=== PATIENT | female | born 1995 | race American Indian/Alaskan Native ===

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

== ENCOUNTER 2017-02-06 09:16 | Emergency (ER) | payer SELFPAY ==
[2017-02-06 09:27] VITALS: BP 115/77
--- NOTE | 2017-02-06 11:00 | Emergency Department Report ---
ED ENT HPI - General Chief complaint: Sore Throat Stated complaint: STREP THROAT Time Seen by Provider: 02/06/17 10:33 Source: patient Mode of arrival: Ambulatory Limitations: No Limitations - History of Present Illness Initial comments: 21-year-old female past medical history none presents with complaint of sore throat for 4 days. Patient states she sees white exudates in the back of her throat. Denies any nausea or vomiting slightly decreased appetite slight body aches. Patient speaking in full sentences no audible wheezing or stridor state she has been able to swallow liquids but due to pain in her throat has difficulty swallowing solids. Has been taking [id number] Motrin with minimal relief. Denies sick contacts at home MD complaint: sore throat (patient states she has had sore throat for 4 days) Onset/Timin -: days(s) Location: throat Severity: moderate Severity scale (0 -10): 5 Quality: aching Consistency: intermittent Worsens with: swallowing Associated Symptoms: sore throat - Related Data Previous Rx's Medication Instructions Recorded Last Taken Type Benzocaine/Menthol [Cepacol Sore 1 each MM Q4H PRN #1 pack 02/06/17 Unknown Rx Throat Lozenge] Ibuprofen [Motrin] 600 mg PO Q8H PRN #25 tablet 02/06/17 Unknown Rx Allergies Allergy/AdvReac Type Severity Reaction Status Date / Time No Known Allergies Allergy Verified 02/06/17 09:24 ED Dental HPI - General Chief complaint: Sore Throat Stated complaint: STREP THROAT Time Seen by Provider: 02/06/17 10:33 Source: patient Mode of arrival: Ambulatory Limitations: No Limitations - Related Data Previous Rx's Medication Instructions Recorded Last Taken Type Benzocaine/Menthol [Cepacol Sore 1 each MM Q4H PRN #1 pack 02/06/17 Unknown Rx Throat Lozenge] Ibuprofen [Motrin] 600 mg PO Q8H PRN #25 tablet 02/06/17 Unknown Rx Allergies Allergy/AdvReac Type Severity Reaction Status Date / Time No Known Allergies Allergy Verified 02/06/17 09:24 ED Review of Systems ROS: Stated complaint: STREP THROAT Other details as noted in HPI Constitutional: denies: chills, fever Eyes: denies: eye pain, eye discharge, vision change ENT: throat pain. denies: ear pain Respiratory: denies: cough, shortness of breath, wheezing Cardiovascular: denies: chest pain, palpitations Endocrine: no symptoms reported Gastrointestinal: denies: abdominal pain, nausea, diarrhea Genitourinary: denies: urgency, dysuria, discharge Musculoskeletal: denies: back pain, joint swelling, arthralgia Skin: denies: rash, lesions Neurological: denies: headache, weakness, paresthesias Psychiatric: denies: anxiety, depression Hematological/Lymphatic: denies: easy bleeding, easy bruising ED Past Medical Hx - Past Medical History Previous Medical History?: No - Surgical History Past Surgical History?: No - Social History Smoking Status: Never Smoker Substance Use Type: None - Medications Home Medications: Home Medications Medication Instructions Recorded Confirmed Last Taken Type Benzocaine/Menthol [Cepacol Sore 1 each MM Q4H PRN #1 pack 02/06/17 Unknown Rx Throat Lozenge] Ibuprofen [Motrin] 600 mg PO Q8H PRN #25 tablet 02/06/17 Unknown Rx ED Physical Exam - General Limitations: No Limitations General appearance: alert, in no apparent distress - Head Head exam: Present: atraumatic, normocephalic - Eye Eye exam: Present: normal appearance, PERRL, EOMI - ENT ENT exam: Present: mucous membranes moist - Expanded ENT Exam Expanded Throat exam: Positive: tonsillar erythema, tonsillar exudate (b/l tonsillar exudates) - Neck Neck exam: Present: normal inspection - Respiratory Respiratory exam: Present: normal lung sounds bilaterally. Absent: respiratory distress - Cardiovascular Cardiovascular Exam: Present: regular rate, normal rhythm. Absent: systolic murmur, diastolic murmur, rubs, gallop - GI/Abdominal GI/Abdominal exam: Present: soft, normal bowel sounds - Extremities Exam Extremities exam: Present: normal inspection - Back Exam Back exam: Present: normal inspection - Neurological Exam Neurological exam: Present: alert, oriented X3 - Psychiatric Psychiatric exam: Present: normal affect, normal mood - Skin Skin exam: Present: warm, dry, intact, normal color. Absent: rash ED Course Vital Signs 02/06/17 09:24 Temperature 99.2 F Pulse Rate 94 H Respiratory 15 Rate Blood Pressure 115/77 O2 Sat by Pulse 100 Oximetry ED Medical Decision Making - Medical Decision Making a/p: strep throat/tonsillitis 1- bicillin tx, decadron for symptomatic relief 2- i encouraged pt to increase her PO fluid intake, motrin prn, throat lozenges prn Critical care attestation.: If time is entered above; I have spent that time in minutes in the direct care of this critically ill patient, excluding procedure time. ED Disposition Clinical Impression: Strep throat Disposition: DC- TO HOME OR SELFCARE Is pt being admited?: No Does the pt Need Aspirin: No Condition: Stable Instructions: Strep Throat (ED) Prescriptions: Benzocaine/Menthol [Cepacol Sore Throat Lozenge] 1 each MM Q4H PRN #1 pack PRN Reason: Sore Throat Ibuprofen [Motrin] 600 mg PO Q8H PRN #25 tablet PRN Reason: Pain Referrals: [facility] [Outside] - 3-5 Days Forms: Work/School Release Form(ED) Time of Disposition: 11:02
[2017-02-06] MEDS ORDERED: BICILLIN L-A IM ONE (11:03)
[2017-02-06] MEDS ORDERED: DECADRON IM ONE (11:03)
== END 2017-02-06 11:36 | disposition home or self-care (01) ==
LOC: ED 09:16
DX: J02.0 Streptococcal pharyngitis (principal)
CPT/HCPCS: 87430; 96372; 99282; J0561; J1100

== ENCOUNTER 2017-05-03 10:10 | Emergency (ER) | payer SELFPAY ==
[2017-05-03 10:18] VITALS: BP 114/74
[2017-05-03 10:57] LABS: Bilirubin,Urine NEG (Negative); Blood,Urine NEG (Negative); Ketones,Urine TR mg/dL (Negative); Leukocyte Esterase,Urine NEG (Negative); Mucus,Urine 3+ /HPF; Nitrite,Urine NEG (Negative); Urobilinogen,Urine < 2.0 mg/dL (<2.0)
[2017-05-03 11:17] LABS: Basophils % (Auto) 1.4 % (0.0-1.8); Eosinophils % (Auto) 1.4 % (0.0-4.3); Hematocrit 38.1 % (30.3-42.9); Mean Corpuscular HGB Conc 34 % (30-34); Mean Corpuscular Hemoglobin 31 pg (28-32); Mean Corpuscular Volume 92 fl (79-97); Platelet Count 297 K/mm3 (140-440); Red Blood Count 4.16 M/mm3 (3.65-5.03); Red Cell Distribution Width 13.8 % (13.2-15.2); White Blood Count 5.9 K/mm3 (4.5-11.0)
[2017-05-03 12:50] LABS: Alanine Aminotransferase 9 units/L (7-56); Albumin 4.3 g/dL (3.9-5); Albumin/Globulin Ratio 1.4 %; Alkaline Phosphatase 53 units/L (35-129); Anion Gap 17 mmol/L; Blood Urea Nitrogen 9 mg/dL (7-17); Calcium 9.3 mg/dL (8.4-10.2); Carbon Dioxide 21 mmol/L (22-30); Glucose 76 mg/dL (65-100); Lipase 23 units/L (13-60); Potassium 4.2 mmol/L (3.6-5.0); Sodium 134 mmol/L (137-145); Total Protein 7.4 g/dL (6.3-8.2)
--- NOTE | 2017-05-03 13:57 | Emergency Department Report ---
ED Abdominal Pain HPI - General Chief Complaint: Abdominal Pain Stated Complaint: FLU LIKE SYMPTOMS Time Seen by Provider: 05/03/17 13:01 Source: patient Mode of arrival: Ambulatory Limitations: No Limitations - History of Present Illness Initial Comments: This is a 21-year-old female nontoxic, well nourished in appearance, no acute signs of distress presents to the ED complaining of nasal drainage and congestion, sharp intermittent pelvic pain 2 weeks. Patient stated she just realized she was with a last menstrual cycle 03/23/2017. Patient stated ever since she found that she had a positive that she developed sharp intermittent pains in the lower pelvic region. Patient denies any vaginal bleeding, vaginal discharge, dysuria, polyuria, fever, chills, nausea, vomiting, constipation, diarrhea, epigastric pain, chest pain, shortness of breath, back pain, numbness or tingling. Patient denies any allergies or past medical history. Patient today during interview denies any abdominal pain or pelvic pain. Patient stated she is here today to rule out positive and to make sure is going well. Patient denies any trauma to the abdomen. Pepe calf pain or tenderness. MD Complaint: abdominal pain -: Gradual, week(s) (2) Radiation: none Migration to: no migration Severity: mild Severity scale (0 -10): 6 Quality: sharp Consistency: intermittent Improves With: nothing Worsens With: nothing Associated Symptoms: denies other symptoms. denies: nausea, vomiting, diarrhea , fever, chills, constipation, dysuria, hematemesis, hematochezia, melena, hematuria, anorexia, syncope - Related Data LMP Date: 03/23/17 Home Medications Medication Instructions Recorded Confirmed Last Taken No Known Home Medications [No 05/03/17 05/03/17 Unknown Reported Home Medications] Allergies Allergy/AdvReac Type Severity Reaction Status Date / Time No Known Allergies Allergy Verified 02/06/17 09:24 ED Review of Systems ROS: Stated complaint: FLU LIKE SYMPTOMS Other details as noted in HPI Constitutional: denies: chills, fever Eyes: denies: eye pain, eye discharge, vision change ENT: denies: ear pain, throat pain Respiratory: denies: cough, shortness of breath, wheezing Cardiovascular: denies: chest pain, palpitations Endocrine: no symptoms reported Gastrointestinal: abdominal pain. denies: nausea, diarrhea Genitourinary: denies: urgency, dysuria, discharge Musculoskeletal: denies: back pain, joint swelling, arthralgia Skin: denies: rash, lesions Neurological: denies: headache, weakness, paresthesias Psychiatric: denies: anxiety, depression Hematological/Lymphatic: denies: easy bleeding, easy bruising ED Past Medical Hx - Past Medical History Previous Medical History?: No - Surgical History Past Surgical History?: No - Social History Smoking Status: Never Smoker Substance Use Type: None - Medications Home Medications: Home Medications Medication Instructions Recorded Confirmed Last Taken Type No Known Home Medications [No 05/03/17 05/03/17 Unknown History Reported Home Medications] ED Physical Exam - General Limitations: No Limitations General appearance: alert, in no apparent distress - Head Head exam: Present: atraumatic, normocephalic, normal inspection - Eye Eye exam: Present: normal appearance, PERRL, EOMI. Absent: scleral icterus, conjunctival injection, nystagmus, periorbital swelling, periorbital tenderness Pupils: Present: normal accommodation - ENT ENT exam: Present: normal exam, normal orophraynx, mucous membranes moist, TM's normal bilaterally, normal external ear exam - Neck Neck exam: Present: normal inspection, full ROM. Absent: tenderness, meningismus, lymphadenopathy, thyromegaly - Respiratory Respiratory exam: Present: normal lung sounds bilaterally. Absent: respiratory distress, wheezes, rales, rhonchi, stridor, chest wall tenderness, accessory muscle use, decreased breath sounds, prolonged expiratory - Cardiovascular Cardiovascular Exam: Present: regular rate, normal rhythm. Absent: irregular rhythm, normal heart sounds, systolic murmur, diastolic murmur, rubs, gallop - GI/Abdominal GI/Abdominal exam: Present: soft, normal bowel sounds. Absent: distended, tenderness, guarding, rebound, rigid, diminished bowel sounds, hyperactive bowel sounds, hypoactive bowel sounds, organomegaly, mass, bruit, pulsatile mass , hernia - Expanded GI/Abdominal Exam Expanded GI/Abdominal exam: Absent: psoas sign, obturator sign, heel tap sign, Basilio's sign, Rovsing's sign, tenderness at Mcburney's Point, ascites - Rectal Rectal exam: Present: deferred - Extremities Exam Extremities exam: Present: normal inspection, full ROM, normal capillary refill. Absent: tenderness, pedal edema, joint swelling, calf tenderness - Back Exam Back exam: Present: normal inspection, full ROM. Absent: tenderness, CVA tenderness (R), CVA tenderness (L), muscle spasm, paraspinal tenderness, vertebral tenderness, rash noted - Neurological Exam Neurological exam: Present: alert, oriented X3, CN II-XII intact, normal gait, reflexes normal - Psychiatric Psychiatric exam: Present: normal affect, normal mood - Skin Skin exam: Present: warm, dry, intact, normal color. Absent: rash ED Course Vital Signs 05/03/17 10:13 Temperature 98.3 F Pulse Rate 94 H Respiratory 16 Rate Blood Pressure 114/74 O2 Sat by Pulse 100 Oximetry - Reevaluation(s) Reevaluation #1: 05/03/17 14:00 Patient is speaking in full sentences with no signs of distress noted. Reevaluation #2: 05/03/17 14:56 Patient is laying in bed comfortably with no signs of distress noted. Patient asked how long till she receives an ultrasound and I stated that she will be getting one shortly and that I was waiting for the cardiology technician. Patient stated that this was the only reason why the patient came in today is for the ultrasound for the baby. Reevaluation #3: 05/03/17 15:50 Patient is watching TV comfrtably with no signs of distress. Patient denies any abdominal pain or pelvic pain currently. Pending Ultrasound. Reevaluation #4: 05/03/17 16:38 Patient left AMA before receiving ultrasound report. I instructed my concerns about having the report and patient being further evaluated the patient stated she had relief and wants to sign AMA. ED Medical Decision Making - Lab Data Result diagrams: 05/03/17 10:46 05/03/17 10:46 Critical care attestation.: If time is entered above; I have spent that time in minutes in the direct care of this critically ill patient, excluding procedure time. ED Disposition Clinical Impression: Abdominal pain Qualifiers: Abdominal location: unspecified location Qualified Code(s): R10.9 - Unspecified abdominal pain Disposition: DC-07 LEFT AGAINST MED ADVICE Is pt being admited?: No Does the pt Need Aspirin: No Condition: Stable Instructions: Abdominal Pain (ED) Referrals: PRIMARY CARE, [Primary Care Provider] - 3-5 Days
[2017-05-03] MEDS ORDERED: TYLENOL PO ONE (14:55)
[2017-05-03] MEDS ORDERED: NACL 0.9% 1000 ML 1,000 ML IV ONE (15:46)
--- NOTE | 2017-05-03 17:15 | Ultrasound Report ---
FINAL REPORT PROCEDURE: US OB \T\lt; = 14 WEEKS FETUS TECHNIQUE: Real-time transabdominal and transvaginal sonography of the uterus, placenta, amniotic fluid, adnexa, and fetus was performed with image documentation. Measurements were obtained to determine age/size. M-mode Doppler was used to document heartbeat. CPT 79917 and 87252 HISTORY: abd pain COMPARISON: No prior studies are available for comparison. FINDINGS: ADDITIONAL GESTATION: None. Probable early gestational sac is seen with mean sac diameter 5.9 millimeters corresponding to 5 weeks 2 days gestational age. No pole or yolk sac is seen and viability is uncertain. There is a 7 x 3 x 6 millimeter implantation hemorrhage. Right ovary measures 3.0 x 1.9 x 3.0 cm. Left ovary measures 3.5 x 1.9 x 3.1 cm. 2.3 cm. Likely collapsed cyst is seen in the left ovary. Color Doppler flow is seen in the ovaries. Trace free pelvic fluid is seen. IMPRESSION: Possible very early IUP is seen at 5 weeks 2 days gestational age. viability is uncertain as pole is not yet seen. Correlation with serial quantitative beta HCG levels is recommended. Estimated date of delivery based on this measurement is January 01, 2018. Tiny implantation bleed is seen.
--- NOTE | 2017-05-03 17:16 | Ultrasound Report ---
FINAL REPORT PROCEDURE: US OB TRANSVAGINAL TECHNIQUE: Real-time transabdominal and transvaginal sonography of the uterus, placenta, amniotic fluid, adnexa, and fetus was performed with image documentation. Measurements were obtained to determine age/size. M-mode Doppler was used to document heartbeat. CPT 20807 and 62527 HISTORY: abd pain COMPARISON: No prior studies are available for comparison. FINDINGS: Probable early gestational sac is seen with mean sac diameter 5.9 millimeters corresponding to 5 weeks 2 days gestational age. No pole or yolk sac is seen and viability is uncertain. There is a 7 x 3 x 6 millimeter implantation hemorrhage. Right ovary measures 3.0 x 1.9 x 3.0 cm. Left ovary measures 3.5 x 1.9 x 3.1 cm. 2.3 cm. Likely collapsed cyst is seen in the left ovary. Color Doppler flow is seen in the ovaries. Trace free pelvic fluid is seen. IMPRESSION: Possible very early IUP is seen at 5 weeks 2 days gestational age. viability is uncertain as pole is not yet seen. Correlation with serial quantitative beta HCG levels is recommended. Estimated date of delivery based on this measurement is January 01, 2018. Tiny implantation bleed is seen.
== END 2017-05-03 16:36 | disposition left against medical advice (07) ==
LOC: ED 10:10
DX: O26.891 Other specified pregnancy related conditions, first trimester (principal); R10.30 Lower abdominal pain, unspecified; Z3A.01 Less than 8 weeks gestation of pregnancy
CPT/HCPCS: 36415; 76801; 76817; 80053; 81001; 81025; 83690; 84702; 85025; 86850; 86900; 86901

== ENCOUNTER 2017-05-25 18:31 | Emergency (ER) | payer SELFPAY ==
--- NOTE | 2017-05-25 22:46 | Emergency Department Report ---
[facility] Chief Complaint: Eye Problems Stated Complaint: PINK EYE Time Seen by Provider: 05/25/17 22:21 Duration: 2 Days Side: Bilateral Severity: mild Symptoms: Yes Eye Itching (both eyes), Yes Eye Redness (both eyes), Yes Mucous Drainage, Yes Purulent Drainage, No Eye Pain, No Blurred Vision, No Preceding URI, No H/O Allergic Rhinitis, No Contact Lens Use, No Trauma, No Fever, No Headache Other History: Patient here reports that she thinks she has pink eye. She says she's been having itchy and right eye with drainage and crusting for 2 days. Patient also reports that she is without any related problem. She also requested that if she can have a blood test and ultrasound to see how far along she is. She said that she has not had a period since 01/19. I discussed the patient that I will send her to [facility]. Patient is not having any vaginal bleeding and, discharge, back pain or abdominal pain. She is here for pink eye. Denies any loss in her vision. ED Review of Systems ROS: Stated complaint: PINK EYE Other details as noted in HPI Comment: All other systems reviewed and negative Constitutional: no symptoms reported Eyes: eye discharge, other (redness to both eyes). denies: eye pain, vision change ENT: denies: ear pain, throat pain Respiratory: no symptoms reported Cardiovascular: denies: chest pain, palpitations, edema, syncope Gastrointestinal: denies: abdominal pain, nausea, vomiting Genitourinary: abnormal menses. denies: urgency, dysuria, frequency, hematuria , discharge, dyspareunia Musculoskeletal: denies: back pain, joint swelling, arthralgia, myalgia Neurological: denies: headache ED Past Medical Hx - Past Medical History Previous Medical History?: No - Surgical History Past Surgical History?: No - Family History Family history: no significant - Social History Smoking Status: Never Smoker Substance Use Type: None - Medications Home Medications: Home Medications Medication Instructions Recorded Confirmed Last Taken Type Gentamicin 0.3% Ophth Soln 2 drops OP Q8H #1 bottle 05/25/17 Unknown Rx [facility] Exam - Exam General: Vital signs noted. No distress. Alert and acting appropriately. This is a 22-year-old female well-nourished well-developed in no acute distress. Eye Exam: Both Injection (patient denies any foreign body sensation to her eye.) , Both EOMI (visual acuity is 20/30 all around), Both Mucous Discharge, Both Purulent Discharge, Neither Chemosis (denies any trauma to the eyes.), Neither Abnormal Pupil, Neither Eye Foreign Body, Neither Lid Foreign Body, Neither Corneal Edema, Neither Photophobia (denies wearing contacts) HEENT: No Nasal Congestion, No Pharyngeal Erythema Remainder of HEENT: Normal Lungs: Yes Clear Lung Sounds, Yes Good Air Exchange, Yes Cough, No Wheezes, No Stridor, No Nasal Flaring, No Retractions, No Use of Accessory Muscles ED Course Vital Signs 05/25/17 18:40 Temperature 97.8 F Pulse Rate 95 H Respiratory 16 Rate Blood Pressure 124/72 O2 Sat by Pulse 98 Oximetry - Reevaluation(s) Reevaluation #1: 05/25/17 23:07 Patient stable throughout ED stay ED Medical Decision Making - Medical Decision Making ED course: Patient here complaining that she has pinkeye which started in her left eye and now in her right eye. She said this has been going on for a couple days. She denies any foreign body sensation to eyes, denies wearing contacts. Denies any eye pain. She said her eyes are itchy and red. Visual acuity is 20/30 all around. I discussed the patient based on my physical findings she has conjunctivitis and will need to be on antibiotic eyedrops. Patient voiced understanding of discharge diagnosis and treatment plan. She was also requesting test and ultrasound to see how far along she has because she says she is . She is not having any related issues and I told her that she will need to follow up with SCIENT[facility] AFFAIRS MANAGER for care. Patient discharged home and I will refer her to my [facility] AFFAIRS MANAGER and also ophthalmology if she is still having symptoms to eyes in 2 days. Discharged home with prescription for gentamicin ophthalmic drops. Critical care attestation.: If time is entered above; I have spent that time in minutes in the direct care of this critically ill patient, excluding procedure time. ED Disposition Clinical Impression: , status unknown Conjunctivitis Qualifiers: Conjunctivitis type: acute Acute conjunctivitis type: unspecified Laterality: bilateral Qualified Code(s): H10.33 - Unspecified acute conjunctivitis, bilateral Disposition: - TO HOME OR SELFCARE Is pt being admited?: No Does the pt Need Aspirin: No Condition: Stable Instructions: (ED), Conjunctivitis (ED) Additional Instructions: Please follow up with [facility] AFFAIRS MANAGER as discussed. Call in the morning to schedule an appointment. You will need to start taking vitamin. Practice good hand hygiene. Use antibiotic eyedrops as instructed. SCIENTIFIC AFFAIRS MANAGER will arrange for you to have ultrasound and other blood work Prescriptions: Gentamicin 0.3% Ophth Soln 2 drops OP Q8H #1 bottle Referrals: KM LOPES MD [Staff Physician] - 2-3 Days [facility] [Provider Group] - 05/26/17 Forms: Work/School Release Form(ED)
[2017-05-26 11:27] VITALS: BP 115/75
== END 2017-05-25 23:38 | disposition home or self-care (01) ==
LOC: ED 18:31
DX: H10.9 Unspecified conjunctivitis (principal)
CPT/HCPCS: 99282

== ENCOUNTER 2017-06-05 11:53 | Emergency (ER) | payer SELFPAY ==
[2017-06-05 12:05] VITALS: BP 119/69
[2017-06-05 13:17] LABS: Anion Gap 16 mmol/L; BUN/Creatinine Ratio 18; Blood Urea Nitrogen 11 mg/dL (7-17); Calcium 8.9 mg/dL (8.4-10.2); Carbon Dioxide 23 mmol/L (22-30); Chloride 98.4 mmol/L (98-107); Eosinophils % (Auto) 1.7 % (0.0-4.3); Glucose 71 mg/dL (65-100); Hematocrit 37.2 % (30.3-42.9); Hemoglobin 12.4 gm/dl (10.1-14.3); Mean Corpuscular HGB Conc 33 % (30-34); Mean Corpuscular Hemoglobin 31 pg (28-32); Mean Corpuscular Volume 92 fl (79-97); Platelet Count 373 K/mm3 (140-440); Potassium 3.7 mmol/L (3.6-5.0); Red Blood Count 4.05 M/mm3 (3.65-5.03); Red Cell Distribution Width 13.4 % (13.2-15.2); Sodium 134 mmol/L (137-145); White Blood Count 8.8 K/mm3 (4.5-11.0)
== END 2017-06-05 19:50 | disposition left against medical advice (07) ==
LOC: ED 11:53
DX: R10.9 Unspecified abdominal pain (principal); Z53.21 Procedure and treatment not carried out due to patient leaving prior to being seen by health care provider
CPT/HCPCS: 36415; 80048; 84702; 84703; 85025

== ENCOUNTER 2017-12-29 19:20 | Emergency (ER) | payer MEDICAID ==
[2017-12-29 20:23] VITALS: BP 110/70
[2017-12-29 21:57] LABS: HCG Qualitative,Urine Negative (Negative)
[2017-12-29 21:59] LABS: Bilirubin,Urine NEG (Negative); Blood,Urine NEG (Negative); Color,Urine Yellow (Yellow); Mucus,Urine 1+ /HPF; Urobilinogen,Urine < 2.0 mg/dL (<2.0)
== END 2017-12-29 21:00 | disposition left against medical advice (07) ==
LOC: ED 19:20
DX: M54.9 Dorsalgia, unspecified (principal); R07.9 Chest pain, unspecified; Z53.21 Procedure and treatment not carried out due to patient leaving prior to being seen by health care provider
CPT/HCPCS: 81001; 81025

== ENCOUNTER 2018-10-26 14:27 | Emergency (ER) | payer MEDICAID, OTHER ==
[2018-10-26 15:43] LABS: Bacteria,Urine 1+ /HPF (Negative); Bilirubin,Urine NEG (Negative); Blood,Urine NEG (Negative); Color,Urine Yellow (Yellow); Mucus,Urine FEW /HPF; Protein,Urine <15 mg/dL mg/dL (Negative); Urobilinogen,Urine < 2.0 mg/dL (<2.0)
[2018-10-26 15:46] LABS: Basophils % (Auto) 0.3 % (0.0-1.8); Eosinophils # (Auto) 0.1 K/mm3 (0.0-0.4); Eosinophils % (Auto) 1.3 % (0.0-4.3); Hematocrit 35.3 % (30.3-42.9); Lymphocytes # (Auto) 1.4 K/mm3 (1.2-5.4); Lymphocytes % (Auto) 13.8 % (13.4-35.0); Mean Corpuscular HGB Conc 34 % (30-34); Mean Corpuscular Volume 95 fl (79-97); Monocytes # (Auto) 0.6 K/mm3 (0.0-0.8); Monocytes % (Auto) 5.5 % (0.0-7.3); Platelet Count 332 K/mm3 (140-440); Red Blood Count 3.71 M/mm3 (3.65-5.03); Red Cell Distribution Width 13.2 % (13.2-15.2)
--- NOTE | 2018-10-26 15:57 | Emergency Department Report ---
Blank Doc - Documentation Documentation: 23 y/o female reports no menses since June 2018 and noticed some swelling to abdomen presents to ED suspecting . Having some discomfort to pelvic region but no discharge.
--- NOTE | 2018-10-26 17:49 | Emergency Department Report ---
<SETH GUZMÁN - Last Filed: 10/26/18 19:16> ED Female HPI - General Chief complaint: Abdominal Pain Stated complaint: ABD PAIN Time Seen by Provider: 10/26/18 15:04 Source: patient Mode of arrival: Ambulatory Limitations: No Limitations - History of Present Illness Initial comments: Pt is a 23 yo female who presents to the ED with c/o lower abdominal cramping that began two days ago. She has associated N/V in the mornings. She denies any dysuria, vaginal bleeding, vaginal discharge, or any other symptoms. The patient states she has not had a menstrual cycle since June 2018. She states she did take 4 at home tests which were all positive. The patient states she has been taking an OTC vitamin. /P:0/A:1 - Related Data Previous Rx's Medication Instructions Recorded Last Taken Type Gentamicin 0.3% Ophth Soln 2 drops OP Q8H #1 bottle 05/25/17 Unknown Rx Pnv,Calcium 72/Iron/Folic Acid 1 each PO QDAY #90 tablet 10/26/18 Unknown Rx [ Plus Tablet] Allergies Allergy/AdvReac Type Severity Reaction Status Date / Time No Known Allergies Allergy Verified 02/06/17 09:24 ED Review of Systems Comment: All other systems reviewed and negative ED Past Medical Hx - Past Medical History Previous Medical History?: No - Surgical History Past Surgical History?: No - Social History Smoking Status: Never Smoker Substance Use Type: None - Medications Home Medications: Home Medications Medication Instructions Recorded Confirmed Last Taken Type Gentamicin 0.3% Ophth Soln 2 drops OP Q8H #1 bottle 05/25/17 Unknown Rx Pnv,Calcium 72/Iron/Folic Acid 1 each PO QDAY #90 tablet 10/26/18 Unknown Rx [ Plus Tablet] ED Physical Exam - General Limitations: No Limitations General appearance: alert, in no apparent distress - Head Head exam: Present: atraumatic, normocephalic - Respiratory Respiratory exam: Present: normal lung sounds bilaterally. Absent: respiratory distress, wheezes, rales, rhonchi, stridor, chest wall tenderness, accessory muscle use, decreased breath sounds, prolonged expiratory - Cardiovascular Cardiovascular Exam: Present: regular rate, normal rhythm, normal heart sounds, systolic murmur, rubs, gallop - GI/Abdominal GI/Abdominal exam: Present: soft, distended, normal bowel sounds (consistent with ). Absent: tenderness, guarding, rebound, rigid ED Medical Decision Making - Lab Data Result diagrams: 10/26/18 15:17 Laboratory Results - last 24 hr 10/26/18 10/26/18 10/26/18 15:17 15:17 15:17 WBC 10.1 RBC 3.71 Hgb 12.0 Hct 35.3 MCV 95 MCH 32 MCHC 34 RDW 13.2 Plt Count 332 Lymph % (Auto) 13.8 Bladen % (Auto) 5.5 Eos % (Auto) 1.3 Baso % (Auto) 0.3 Lymph # 1.4 Bladen # 0.6 Eos # 0.1 Baso # 0.0 Seg Neutrophils % 79.1 H Seg Neutrophils # 8.0 H HCG, Qual Positive HCG, Quant Urine Color Urine Turbidity Urine pH Ur Specific [place] Urine Protein Urine Glucose (UA) Urine Ketones Urine Blood Urine Nitrite Urine Bilirubin Urine Urobilinogen Ur Leukocyte Esterase Urine WBC (Auto) Urine RBC (Auto) U Epithel Cells (Auto) Urine Bacteria (Auto) Urine Mucus Blood Type B POSITIVE Ord Rhogam Gestat Weeks Rh pos 10/26/18 10/26/18 15:23 16:00 WBC RBC Hgb Hct MCV MCH MCHC RDW Plt Count Lymph % (Auto) Bl[place] % (Auto) Eos % (Auto) Baso % (Auto) Lymph # Bladen # Eos # Baso # Seg Neutrophils % Seg Neutrophils # HCG, Qual HCG, Quant 37933 H Urine Color Yellow Urine Turbidity Slightly-cloudy Urine pH 6.0 Ur Specific [place] 1.028 Urine Protein <15 mg/dl Urine Glucose (UA) Neg Urine Ketones Neg Urine Blood Neg Urine Nitrite Neg Urine Bilirubin Neg Urine Urobilinogen < 2.0 Ur Leukocyte Esterase Neg Urine WBC (Auto) 1.0 Urine RBC (Auto) 3.0 U Epithel Cells (Auto) 15.0 H Urine Bacteria (Auto) 1+ Urine Mucus Few Blood Type Ord Rhogam Gestat Weeks - Medical Decision Making Pt presents with lower abdominal cramping and N/V in the mornings. She has not had a menstrual period since June 2018. She took 4 at home tests which were all positive. She denies any vaginal bleeding, discharge, dysuria. Pt urine is normal. Pt is already taking vitamin. She has not seen OB but states she just got approved for medicaid. US results pending. Will sign out at 7:20 PM to Carlie Garcia PA-C pending US results. ED Disposition Clinical Impression: Qualifiers: Weeks of gestation: 22 weeks Qualified Code(s): Z3A.22 - 22 weeks gestation of Disposition: DC-01 TO HOME OR SELFCARE Condition: Stable Instructions: Abdominal Pain (ED) Additional Instructions: Please take vitamins daily as prescribed. He can only take Tylenol for pain as you are . Please please follow up with an OB/neon light installer/DOCUMENTATION SUPERVISOR immediately. You put yourself and your baby at risk if do not have care. Prescriptions: Pnv,Calcium 72/Iron/Folic Acid [ Plus Tablet] 1 each PO QDAY #90 tablet Referrals: [facility] [Other] - 3-5 Days [facility] [Provider Group] - 3-5 Days [facility] [Provider Group] - 3-5 Days [facility] [Provider Group] - 3-5 Days [facility] [Provider Group] - 3-5 Days Forms: Work/School Release Form(ED) <FIDE GARCIA - Last Filed: 10/26/18 21:00> ED Review of Systems ROS: Stated complaint: ABD PAIN Other details as noted in HPI ED Course Vital Signs 10/26/18 10/26/18 10/26/18 14:32 20:11 20:28 Temperature 98.0 F 98.0 F Pulse Rate 91 H 89 Respiratory 13 15 17 Rate Blood Pressure 112/70 Blood Pressure 127/66 [Right] O2 Sat by Pulse 100 99 Oximetry ED Medical Decision Making - Lab Data Result diagrams: 10/26/18 15:17 - Radiology Data Radiology results: report reviewed Greater than 14 week limited OB ultrasound impression is single intrauterine viable with an approximate age of 22 weeks and 6 days. Critical care attestation.: If time is entered above; I have spent that time in minutes in the direct care of this critically ill patient, excluding procedure time. ED Disposition Is pt being admited?: No Does the pt Need Aspirin: No
[2018-10-26 20:20] VITALS: BP 112/70
[2018-10-26] MEDS ORDERED: TYLENOL PO ONE (20:25)
[2018-10-26] MEDS ORDERED: TYLENOL ONE (20:29)
--- NOTE | 2018-10-26 20:29 | Ultrasound Report ---
PROCEDURE: US OB >= 14 WEEKS FETUS TECHNIQUE: Limited OB ultrasound HISTORY: no period since june and positive . LMP 06/23/2018 with estimated age 17 weeks 6 days and EDC 03/30/2019 COMPARISONS: None FINDINGS: US Age (average) = 22W 6D EFW (BPD,HC,AC,FL) = 530g +/- 78g (1lbs.3oz. +/- 3oz.) US EDC 02/23/2019 Presentation: Cephalic Activity: Monitored Placental location: Anterior Placental grade: 0 Cardiac motion: 149 BPM using M-mode doppler Heart (4 CH) :Present Umbilical cord: 3 vessel Bladder: Present Kidneys: Present stomach: Present Diaphragm:Present Spine: Present brain and skull: Present with normal anatomy. The cerebellum, cisterna magna, and transverse sp ine are not well seen due to the lie femurs: Present tibia/fibula: Present humerus: Present radius/ulna: Present Cord Insertion: Present Amniotic Fluid Volume: Adequate Cervical Length: 3.1 cm IMPRESSION: Single intrauterine viable with an approximate age of 22 weeks 6 days. This document is electronically signed by Brittany Call MD., October 26 2018 08:27:06 PM ET
== END 2018-10-26 20:57 | disposition home or self-care (01) ==
LOC: ED 14:27
DX: O21.9 Vomiting of pregnancy, unspecified (principal); Z3A.22 22 weeks gestation of pregnancy
CPT/HCPCS: 36415; 76805; 81001; 84702; 84703; 85025; 86900; 86901; 99284